=== PATIENT | female | born 1980 | race Caucasian/White ===

== ENCOUNTER 2017-10-28 09:23 | Observation (INO) ==
--- NOTE | 2017-10-28 08:14 | P.OP ---
- Preoperative Diagnosis (1) Endometriosis of uterus (2) Cyst of right ovary (3) Polycystic ovarian syndrome (4) Pelvic and perineal pain - Postoperative Diagnosis (1) Endometriosis of uterus (2) Cyst of right ovary (3) Polycystic ovarian syndrome (4) Pelvic and perineal pain Date of procedure: 10/28/17 Procedure: 1. Laparoscopic supracervical hysterectomy 2. Bilateral salpingo-oophorectomy Anesthesia: SUMAN Surgeon: Isa Linder MD [employer] Supervisor: OR Staff Estimated blood loss (mL): 150 IV fluids (mL): 2,000 (+ IV antibiotics given prior to surgery + Methylene blue) Urine output (mL): 500 Pathology: other (Uterus + B fallopian tubes + B ovaries) Operation and Findings: Descriptions of the procedure: I discussed the risks, benefits and alternatives of the procedure with the patient. Informed consent was obtained after questions were answered. She was then taken to the operating room with her IV running. She was placed in the supine position and was given general anesthesia without difficulties or complications. She was then placed in the dorsal lithotomy position and was prepped and draped in the usual sterile fashion. Attention was first turned to the patient's genital area. A bivalved speculum was introduced inside the patient's vagina. The anterior aspect of the cervix was grasped with a single tooth tenaculum for manipulation. The cervix was carefully dilated and electrocauterized with the Bovie. A uterine manipulator was carefully introduced inside her uterus. The rest of the instruments were removed from the patient's vagina. A sterile blue towel was used to cover the perineum. The surgeon changed gloves and attention was then turned to the patient's abdomen. A vertical umbilical incision was made with the scalpel. A 5 mm trocar was introduced inside the patient's abdomen under direct visualization. A pneumo -peritoneum was created with CO2 gas. Two 5 mm trocars and one 10 mm trocar were introduced inside the patient's abdomen under direct visualization in the lower right, and mid abdomen. A survey of the patient's abdomen revealed normal anatomy. A survey of the patient's pelvis revealed the findings noted above. The round ligaments and the infundibulopelvic ligaments were carefully and serially grasped, electrocauterized and cut with the Harmonic scalpel. Excellent hemostasis was noted. The tissues along the uterus on both sides were serially grasped, electrocauterized and transected with the Harmonic scalpel. The ureters were noted to be away from the surgical site. The uterine vessels were skeletonized, electrocauterized and transected with the Harmonic scalpel. Good hemostasis was noted. Next, the bladder flap was created and the bladder was dissected off the lower uterine segment. Excellent hemostasis was noted. The uterine manipulator was removed. Yudi loop was used to cut and electrocauterize the cervico-uterine junction. Good hemostasis was noted. The Kleppinger was used to electrocauterized the endocervix. The morcellator was introduced inside the abdomen under direct visualization and was used to cut the uterus and adnexa. The tissues were carefully removed and sent to Pathology. The surgical sites were noted to be hemostatic. Copious irrigation was done. Care was taken to ensure the removal of all small pieces of tissue which were left in the abdomen and pelvis after morcellation. Methylene blue dye was given at the beginning of the surgical procedure. The ureters were identified again and were found to be away from the surgical sites. There was no evidence of injury or blockage of the ureters or bladder. Sofia powder and Intercede were placed over surgical sites and cervix. All of the instruments were removed from the patient's abdomen. The ports were also removed under direct visualization. Excellent hemostasis was noted. The CO2 gas was carefully expressed out of the patient's abdomen. The 10 mm fascial incision was reapproximated with a figure eight stitch of 0-Vicryl. The skin incisions were injected with 0.5 % Marcaine and were reapproximated with subcutaneous stitches of 4-0 Vicryl. Mastisol and steri strips were placed over the incisions. The patient tolerated the procedure well. She was successfully extubated and transferred to PACU in stable condition. Note: I discussed surgical procedures and surgical findings with patient's . His questions were answered. He verbalized understanding.
[2017-10-28] MEDS ORDERED: Fluorescein Sod 10% Inj 500 MG/5 ML Ampul IV.PUSH ONE (10:05)
[2017-10-28] MEDS ORDERED: Bupivacaine/Epinephrine PF Inj 0.5% 30 ML Vial ONE (10:08)
[2017-10-28] MEDS ORDERED: Chlorhexidine Gluconate 2% 1 Pack (2 Cloths) TOPICAL SCH (10:15)
[2017-10-28] MEDS ORDERED: Metoprolol Tartrate 25 MG Tablet PO SCH (10:15)
[2017-10-28] MEDS ORDERED: Sodium Chlor 0.9% Inj 500 ML IV.SIG SCH (11:00)
[2017-10-28] MEDS: ceFAZolin 2 GM IV; once IV.SIG ONE ×2 (11:06→15:37)
[2017-10-28] MEDS ORDERED: Zolpidem Tartrate 5 MG Tablet PO PRN (13:08)
[2017-10-28] MEDS ORDERED: LORazepam 0.5 MG Tablet PO PRN (13:08)
[2017-10-28] MEDS ORDERED: *Meperidine Inj 25 MG/ML Vial PERIprocedural Use ONLY ONE (13:33)
[2017-10-28] MEDS ORDERED: fentaNYL Citrate Inj 100 MCG/2 ML Ampul ONE ×2 (13:34)
[2017-10-28] MEDS ORDERED: Morphine Inj 4 MG/ML Vial ONE (13:35)
[2017-10-28] MEDS ORDERED: Glycopyrrolate Inj 1 MG/5 ML Syringe IV.PUSH ONE (13:38)
[2017-10-28] MEDS ORDERED: Succinylcholine Inj 100 MG/5 ML Syringe IV.PUSH ONE (13:38)
[2017-10-28] MEDS ORDERED: Lidocaine PF 1% Inj 5 ML Syringe INFILTRATN ONE (13:38)
[2017-10-28] MEDS ORDERED: Neostigmine Inj 5 MG/5 ML Syringe IV.PUSH ONE (13:38)
[2017-10-28] MEDS ORDERED: Ketorolac Inj 30 MG/ML (IVP) Vial IV.PUSH ONE (13:38)
[2017-10-28] MEDS ORDERED: Normosol-R pH 7.4 Inj 1,000 ML IV.CONT ONE (13:38)
[2017-10-28] MEDS ORDERED: *morphine SULFATE 10 MG/ML PERIprocedure ONLY ONE ×2 (13:47→14:11)
[2017-10-28] MEDS: Docusate Sodium 100 MG Capsule PO SCH (21:25)
[2017-10-28] MEDS: Ibuprofen 600 MG Tablet PO PRN (23:13)
[2017-10-29 06:42] LABS: Baso % (Auto) 0.2 % (0.0-2.0); Eos # (Auto) 0.1 th/mm3 (0.0-0.4); Eos % (Auto) 0.8 % (0.0-4.0); Hematocrit 33.3 % (35.0-46.0); Hemoglobin 11.6 gm/dL (11.6-15.3); Lymph # (Auto) 2.1 th/mm3 (1.0-4.8); Lymph % (Auto) 24.2 % (9.0-44.0); Mean Corpuscular Hemoglobin 29.7 pg (27.0-34.0); Mean Corpuscular Volume 84.8 fL (80.0-100.0); Mean Platelet Volume 7.4 fL (7.0-11.0); Mono # (Auto) 0.6 th/mm3 (0.0-0.9); Mono % (Auto) 6.5 % (0.0-8.0); Neut # (Auto) 5.9 th/mm3 (1.8-7.7); Neut % (Auto) 68.3 % (16.0-70.0); Platelet Count 223 th/mm3 (150-450); Red Blood Count 3.92 mil/mm3 (4.00-5.30); Red Cell Distribution Width 12.4 % (11.6-17.2); White Blood Count 8.6 th/mm3 (4.0-11.0)
[2017-10-29 06:51] LABS: Anion Gap 6 meq/L (5-15); Blood Urea Nitrogen 7 mg/dL (7-18); Calcium 7.6 mg/dL (8.5-10.1); Chloride 109 meq/L (98-107); Glomerular Filtration Rate Greater Than 89 mL/min (>89); Glucose,Random 118 mg/dL (74-106); Potassium 3.8 meq/L (3.5-5.1); Sodium 140 meq/L (136-145)
[2017-10-29] MEDS: Ibuprofen 600 MG Tablet PO PRN (08:35)
[2017-10-29] MEDS: Docusate Sodium 100 MG Capsule PO SCH (08:37)
[2017-10-29] MEDS ORDERED: Verapamil 120 MG Tablet PO SCH (09:00)
--- NOTE | 2017-10-29 09:20 | P.PNOB ---
Assessment and Plan (1) Pelvic and perineal pain Status: Acute Assessment and plan: 1. patient is stable 2. instructed patient to take pain medication after eating some food 3. discussed op findings 4. discussed post op care 5. answered patient's and 's questions - Postoperative Procedures Operation Date: 10/28/17 11:00 Actual Procedures Side Surgeon p Laparoscopic, Supracervical Hysterectomy, Bilateral Salpingo Oophorectomy Isa Linder MD Postoperative day: 1 Postoperative status: doing well Postoperative plan: routine post-op care, discharge - Time Spent With Patient Total time spent is greater than 50% in coordination of care (as documented) at patient's floor/unit and/or counseling patient: 25 - 35 minutes Subjective Subjective: patient reports feeling better, patient has no complaints, pain is well controlled, patient is tolerating oral intake, other (had some nausea after taking pain medication) Physical Exam Vital signs: Temp Pulse Resp BP Pulse Ox 98.5 F 67 16 111/71 98 10/29/17 07:00 10/29/17 07:00 10/29/17 07:00 10/29/17 07:00 10/29/17 07:00 - Constitutional no acute distress - Routine Abdominal Exam Present: soft, normoactive bowel sounds, surgical scars (intact, dressing dry) - Urinary Catheter Management Indwelling Urethral Catheter Cath placed during this visit: yes Urethral indwelling: No Insertion date: 10/28/17 Insertion time: 11:50 Results - Labs CBC & Chem 7: 10/29/17 06:09 10/29/17 06:09 Labs: Laboratory Results - last 24 hr 10/28/17 10/29/17 10/29/17 10:10 06:09 06:09 WBC 8.6 RBC 3.92 L Hgb 11.6 Hct 33.3 L MCV 84.8 MCH 29.7 MCHC 35.0 RDW 12.4 Plt Count 223 MPV 7.4 Neut % (Auto) 68.3 Lymph % (Auto) 24.2 Republic % (Auto) 6.5 Eos % (Auto) 0.8 Baso % (Auto) 0.2 Neut # (Auto) 5.9 Lymph # (Auto) 2.1 Republic # (Auto) 0.6 Eos # (Auto) 0.1 Baso # (Auto) 0.0 WBC Differential . Differential Comment Auto diff final Sodium 140 Potassium 3.8 Chloride 109 H Carbon Dioxide 25.0 Anion Gap 6 BUN 7 Creatinine 0.72 Estimated GFR Greater than 89 Random Glucose 118 H Calcium 7.6 L Beta HCG, Quant Less than 1
== END 2017-10-29 13:39 | disposition home or self-care (01) ==
LOC: HSDC 09:23 → H1EA 09:23 → HSDI 09:23 → H1EA 14:58
PROVIDERS: ADMIT Obstetrics & Gynecology; ATTEND Obstetrics & Gynecology
PROC: LAPLASH (ICD-10-PCS; 2017-10-28 11:04)